=== PATIENT | female | born 1960 | race Caucasian/White ===

== ENCOUNTER 2022-06-15 16:36 | Emergency (ER) | payer OTHER ==
[~2022-06-15] VITALS: Ht 167.6 cm; Wt 99.1 kg
[2022-06-15] MEDS ORDERED: VIRTUSSIN AC L118 ML (16:56)
[2022-06-15] MEDS ORDERED: CYMBALTA20 MG PO (16:56)
[2022-06-15] MEDS ORDERED: ACETAMINOPHEN 325 MG TAB ONE (17:07)
[2022-06-15] MEDS ORDERED: IBUPROFEN 600 MG TAB ONE (17:07)
[2022-06-15] MEDS ORDERED: IBUPROFEN 600 MG TAB PO STA (17:08)
[2022-06-15] MEDS ORDERED: ACETAMINOPHEN 325 MG TAB PO ONE (17:15)
[2022-06-15] MEDS ORDERED: VIRTUSSIN AC L118 ML PO (17:30)
== END 2022-06-15 17:45 | disposition home or self-care (01) ==
LOC: FSED 16:44
DX: J06.9 Acute upper respiratory infection, unspecified (principal); H69.80 Other specified disorders of Eustachian tube, unspecified ear; Z20.822 Contact with and (suspected) exposure to COVID-19; F41.9 Anxiety disorder, unspecified; F32.A Depression, unspecified; Z79.899 Other long term (current) drug therapy
CPT/HCPCS: 83518; 87400; 99283

== ENCOUNTER → 2025-03-16 | Day surgery (SDC) | payer BC, OTHER ==
[2025-03-11 15:11] LABS: BASOPHILS % 0.4 % (0.0-1.0); EOSINOPHILS % 1.3 % (0.0-6.0); LYMPHOCYTES % 26.1 % (18.0-39.1); MONOCYTES % 9.2 % (4.4-11.3); NEUTROPHILS % 62.9 % (38.7-80.0); RED CELL DISTRIBUTION WIDTH 13.4 % (11.7-14.4)
[2025-03-11 15:39] LABS: EST GLOMERULAR FILTRATION RATE 88.0 ML/MIN (>=60)
[~2025-03-16] MED LIST: ACETAMINOPHEN 1000 MG/100 ML 100 ML IV ONE; BUPROPION XL150 MG PO; CYMBALTA20 MG PO; DEXAMETHASONE SOD PHOS INJ 4 MG/ML SDV ONE; DIM PO; EPHEDRINE SULFATE INJ 50 MG/ML VIAL ONE; FENTANYL CITRATE/PF 100MCG/2 ML INJ ONE; IBANDRONATE SO150 MG PO; KETOROLAC TROMETHAMINE 30 MG/ML VIAL ONE; LACTATED RINGER'S 1,000 ML ONE; LIDOCAINE HCL 2% LOCAL INJ 5 ML SDV VIAL INJ ONE; MULTI-VITAMIN1 EACH PO; OMEGA-31000 MG PO; ONDANSETRON HCL INJ 2MG/ML 2ML 2 MG/ML VIAL ONE; PROBIOTIC PO; PROGESTERONE200 MG PO; PROPOFOL IV EMULSION 10 MG/ML 20 ML VIAL ONE; VIRTUSSIN AC L118 ML; VIRTUSSIN AC L118 ML PO; VITAMIN D3125 MCG PO; WEGOVY1.7 MG/0.7 SQ; [UNRECOGNIZED DRUG - OTHER] PO; [UNRECOGNIZED DRUG - OTHER] PO
[2025-03-16 12:58] VITALS: TEMP 97.3
[2025-03-16] MEDS: HYDROCODONE/APAP 7.5MG-325MG 1 EA TAB ONE (13:26)
[2025-03-16 14:00] VITALS: BP 141/83; PULSE 84; RESP 15; O2SAT 100
== END | disposition home or self-care (01) ==
LOC: OR 07:57
PROVIDERS: ATTEND Surgery
DX: D17.39 Benign lipomatous neoplasm of skin and subcutaneous tissue of other sites (principal); K21.9 Gastro-esophageal reflux disease without esophagitis; F32.A Depression, unspecified; Z79.85 Long-term (current) use of injectable non-insulin antidiabetic drugs; Z01.810 Encounter for preprocedural cardiovascular examination; Z01.812 Encounter for preprocedural laboratory examination; Z79.899 Other long term (current) drug therapy
CPT/HCPCS: 21552; 36415; 71046; 80053; 85025; 88304; 93005; J0131; J1100; J2003; J2405; J2704; J3010; J7121; J1885